=== PATIENT | female | born 1955 | race African-American/Black ===

== ENCOUNTER 2016-05-01 05:04 | Day surgery (SDC) | payer MEDICARE ==
[~2016-05-01 05:04] MED LIST: ASAB PO; DIL2TAB PO; DSS PO; FERROUS SULF325 M1 PO; FLEX PO; FLONASE NAS; K500 PO; KADIANSR30 PO; KLOR-CON M1010 MEQ PO; L40 PO; LORTAB 5 PO; LYRICA100 MG PO; LYRICA75 PO; MSCONTIN PO; NORCO1 TA1 PO; NORCO1 TA2 PO; NORCO1 TAB PO; PAX20 PO; PR12.5 PO; PR25 PO; PRILO PO; PROAIR HFA INH; SEPTRA DS1 TAB PO; TOPROL XL200 MG PO; TOPXL100 PO; ULTRAM50 PO
[2016-06-24] MEDS ORDERED: MOBIC15 MG PO (12:54)
[2016-11-21] MEDS ORDERED: LYRICA100 MG PO (08:30)
== END 2016-05-01 09:45 | disposition home or self-care (01) ==
LOC: SDC 05:04
PROVIDERS: Orthopaedic Surgery
PROC: 3E0R33Z Introduction of Anti-inflammatory into Spinal Canal, Percutaneous Approach (ICD-10-PCS; principal; 2016-05-01 07:15)
DX: M54.16 Radiculopathy, lumbar region (principal); G43.909 Migraine, unspecified, not intractable, without status migrainosus; M19.90 Unspecified osteoarthritis, unspecified site; Z88.0 Allergy status to penicillin; Z91.040 Latex allergy status; Z88.8 Allergy status to other drugs, medicaments and biological substances; Z90.49 Acquired absence of other specified parts of digestive tract; I10 Essential (primary) hypertension; Z90.710 Acquired absence of both cervix and uterus; Z98.890 Other specified postprocedural states
CPT/HCPCS: J1040; J2250; J2405; J3010; Q9967

== ENCOUNTER 2016-05-14 05:06 | Day surgery (SDC) | payer MEDICARE ==
[2016-06-24] MEDS ORDERED: MOBIC15 MG PO (12:54)
[2016-11-21] MEDS ORDERED: LYRICA100 MG PO (08:30)
== END 2016-05-14 13:27 | disposition home or self-care (01) ==
LOC: SDC 05:06
PROVIDERS: Orthopaedic Surgery
PROC: 3E0S3BZ Introduction of Anesthetic Agent into Epidural Space, Percutaneous Approach (ICD-10-PCS; 2016-05-14)
PROC: 3E0S33Z Introduction of Anti-inflammatory into Epidural Space, Percutaneous Approach (ICD-10-PCS; principal; 2016-05-14 07:45)
DX: M54.16 Radiculopathy, lumbar region (principal); M54.9 Dorsalgia, unspecified; I10 Essential (primary) hypertension; J40 Bronchitis, not specified as acute or chronic; M19.90 Unspecified osteoarthritis, unspecified site; Z79.51 Long term (current) use of inhaled steroids; Z79.899 Other long term (current) drug therapy; Z88.0 Allergy status to penicillin; Z88.8 Allergy status to other drugs, medicaments and biological substances; Z91.040 Latex allergy status; Z90.89 Acquired absence of other organs; Z96.651 Presence of right artificial knee joint; Z90.49 Acquired absence of other specified parts of digestive tract; Z90.710 Acquired absence of both cervix and uterus; Z98.890 Other specified postprocedural states
CPT/HCPCS: J1040; J2250; J2405; J3010; Q9967

== ENCOUNTER 2016-06-18 08:39 | Emergency (ER) | payer MEDICARE ==
[2016-06-24] MEDS ORDERED: MOBIC15 MG PO (12:54)
[2016-11-21] MEDS ORDERED: LYRICA100 MG PO (08:30)
== END 2016-06-18 10:00 | disposition home or self-care (01) ==
LOC: ER 08:39
DX: M54.5 Low back pain (principal); I10 Essential (primary) hypertension; Z88.0 Allergy status to penicillin; Z88.8 Allergy status to other drugs, medicaments and biological substances; Z91.040 Latex allergy status; Z79.899 Other long term (current) drug therapy
CPT/HCPCS: 96372; 99283; J2405

== ENCOUNTER 2016-07-04 07:12 | Inpatient (IN) | payer MEDICARE ==
[2016-06-27 09:55] LABS: HEMATOCRIT 38.1 % (36.0-48.0); HEMOGLOBIN 12.5 g/dL (12.0-16.0)
[2016-06-27 10:07] LABS: BUN (BLOOD UREA NITROGEN) 16 MG/DL (6-23); CALCIUM, SERUM 8.9 MG/DL (8.5-10.4); CHLORIDE, SERUM 108 MMOL/L (96-112); CO2 (CARBON DIOXIDE) 30 MMOL/L (24-34); GFR AFRICAN AMERICAN 62 ML/MIN (>=60); GFR NON AFRICAN AMERICAN 53 ML/MIN (>=60); GLUCOSE, SERUM 99 MG/DL (60-99); SODIUM, SERUM 142 MMOL/L (135-148)
--- NOTE | ~2016-07-04 | OP ---
Record Of Operation [facility] [address] [place]. [address] NAME: SAQIB ENCISO : 51 STATUS : ADM IN PAT#: [id number] AGE: 61 ADM/REG DATE : 07/04/16 MR#: [id number] REPORT SERV DATE: 07/06/16 DICTATED BY: BARBARA AGUILAR II DATE: 07/06/16 REPORT STATUS : Draft TRANSCRIBED BY: MODShankar DATE: 07/06/16 DATE OF PROCEDURE: 07/04/2016 PREOPERATIVE DIAGNOSES: 1. 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 2. 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 POSTOPERATIVE DIAGNOSES: 1. 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 2. 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 PROCEDURE: 1. L4-5 hardware removal. 2. Lumbar laminectomy and facetectomy at L2-3 and L3-4. 3. Interbody arthrodesis at L2-3 at L3-4. 4. Application of prosthetic devices at L2-3 and L3-4. 5. Posterolateral arthrodesis at L2-3 and L3-4. 6. Posterior segmental instrumentation at L2-3 and L3-4. 7. Use of local autograft, allograft substitute, and bone morphogenetic protein. 8. Use of the microscope and stereotactic spinal imaging. FLUIDS: 1800 mL LR. ESTIMATED BLOOD LOSS: 150 mL. DRAINS: One drain. COMPLICATIONS: None. ANTIBIOTIC: Preoperatively. PREOPERATIVE HISTORY: This is a very friendly 61-year-old female, who did well following a fusion many years ago. 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 We discussed the pros and cons of surgery as well as the rates of success and failures, and she wished to proceed. DESCRIPTION OF PROCEDURE: After informed consent was obtained, the patient was brought to the operating room at her request and general anesthesia was achieved. She was placed in the prone position and the back was prepped and draped in a sterile fashion. The stereotactic spinal pin was placed into the right iliac crest and the intraoperative CT scan completed. Please note that stereotactic guidance was then used throughout the case. Next, the minimally invasive incision was performed on the left at L2-3, L3-4, and L4-5. The hardware was now removed at L4-5. This was a pedicle screw construct. At this point, the transverse processes were dissected upon at L2-3 and L3-4. The facet Record Of Operation [facility] [address] [place]. [address] NAME: SAQIB ENCISO : 51 STATUS : ADM IN PAT#: [id number] AGE: 61 ADM/REG DATE : 07/04/16 MR#: [id number] REPORT SERV DATE: 07/06/16 DICTATED BY: BARBARA AGUILAR II DATE: 07/06/16 REPORT STATUS : Draft TRANSCRIBED BY: TREVER DATE: 07/06/16 capsules were removed and the facetectomy now initiated at L3-4. The severe spinal stenosis was now alleviated through the unilateral approach. The spinal laminar junction was taken down. The central canal was now well decompressed. The dura was well decompressed and the ligamentum flavum removed. At this point, the L3 and L4 nerve roots were now found to be acceptably decompressed following facetectomies. Next, the interbody arthrodesis was initiated at L3-4. The diskectomy was now completed with the pituitary rongeurs, Kerrison rongeurs, and the curettes. The valentina were also used. Irrigation was performed followed by placement of the prosthetic device at L3-4. This was placed into the anterior column alongside allograft substitute and local autograft. Next, the similar procedure was performed at L2-3. We then performed a complete facetectomy and a [id number] decompression was achieved. The dura was then well decompressed. The L2 and L3 nerve roots were now found to be well decompressed. Next, the interbody arthrodesis was initiated with the diskectomy at L2-3. The valentina and the curettes and the pituitary rongeurs were used extensively. The punctate bleeding bone was identified on both endplates. The prosthetic device was then well placed at L2-3 followed by use of allograft substitute and local autograft placed along side the prosthetic device. Next, the instrumentation was applied into L2, L3, and L4. On the right, we placed percutaneous screws. A repeat CT scan confirmed acceptable placement of the implants. The rods were then final tightened. Next, the decortication was performed on the left. The transverse processes were decorticated at L2, L3, and L4, and local autograft and allograft substitute placed along the decorticated surfaces. The deep drain was placed followed by a standard closure, and the patient was then extubated and transferred to PACU in stable condition. MARLYS/TREVER Barbara Aguilar II, M.D. / [id number] CC: Salina Coreas II, WINNIFRED D
[~2016-07-04 07:12] MED LIST changes: +MOBIC15 MG PO
[2016-07-06] MEDS ORDERED: OXYCOD PO (08:34)
[2016-07-06] MEDS ORDERED: V2 PO (08:34)
[2016-11-21] MEDS ORDERED: LYRICA100 MG PO (08:30)
== END 2016-07-06 11:27 | disposition home or self-care (01) | DRG 460 ==
LOC: SDC/OF 07:12 → PACU 15:17 → 3SO 17:20
PROVIDERS: Orthopaedic Surgery
PROC: 0SG10AJ Fusion of 2 or more Lumbar Vertebral Joints with Interbody Fusion Device, Posterior Approach, Anterior Column, Open Approach (ICD-10-PCS; principal; 2016-07-06)
PROC: 0SG1071 Fusion of 2 or more Lumbar Vertebral Joints with Autologous Tissue Substitute, Posterior Approach, Posterior Column, Open Approach (ICD-10-PCS; 2016-07-06)
PROC: 0ST20ZZ Resection of Lumbar Vertebral Disc, Open Approach (ICD-10-PCS; 2016-07-06)
PROC: 0SP004Z Removal of Internal Fixation Device from Lumbar Vertebral Joint, Open Approach (ICD-10-PCS; 2016-07-06)
PROC: 8E0WXBG Computer Assisted Procedure of Trunk Region, With Computerized Tomography (ICD-10-PCS; 2016-07-06)
DX: M51.16 Intervertebral disc disorders with radiculopathy, lumbar region (principal); I10 Essential (primary) hypertension; E66.9 Obesity, unspecified; M06.9 Rheumatoid arthritis, unspecified; G47.33 Obstructive sleep apnea (adult) (pediatric); G43.909 Migraine, unspecified, not intractable, without status migrainosus; Z68.37 Body mass index [BMI] 37.0-37.9, adult; Z79.1 Long term (current) use of non-steroidal anti-inflammatories (NSAID); Z79.891 Long term (current) use of opiate analgesic; Z79.899 Other long term (current) drug therapy; Z98.1 Arthrodesis status; Z91.040 Latex allergy status
CPT/HCPCS: 80048; 82962; 85014; 85018; 87641; 88300; 88304; 88311; 93005; 97161-GP; A9270-GY; C1713; C1769; J0690; J1170; J2250; J2370; J2405; J2710; J3010; J3370

== ENCOUNTER 2016-07-24 04:03 | Emergency (ER) | payer MEDICARE ==
[~2016-07-24 04:03] MED LIST changes: +OXYCOD PO; +V2 PO
[2016-07-24 04:24] LABS: BASOPHILS 0.5 %; BASOPHILS ABSOLUTE 0.02 10/3/uL (0.0-0.16); EOSINOPHILS 0.9 %; EOSINOPHILS ABSOLUTE 0.04 10/3/uL (0.0-0.53); HEMATOCRIT 34.4 % (36.0-48.0); HEMOGLOBIN 11.2 g/dL (12.0-16.0); IMMATURE GRANULOCYTES 0.2 %; IMMATURE GRANULOCYTES ABSOLUTE 0.01 10/3/uL (0.0-0.11); LYMPHOCYTES 42.6 %; LYMPHOCYTES ABSOLUTE 1.81 10/3/uL (0.67-4.30); MEAN CORPUS HGB CONC 32.6 g/dL (32.0-36.0); MEAN CORPUSCULAR HEMOGLOB 30.2 pg (26.0-34.0); MEAN CORPUSCULAR VOLUME 92.7 fL (80-100); MEAN PLATELET VOLUME 8.1 fL (9.2-13.0); MONOCYTES 6.4 %; MONOCYTES ABSOLUTE 0.27 10/3/uL (0.21-1.20); NEUTROPHILS 49.4 %; PLATELET COUNT 403 10/3/uL (150-400); RBC DISTRIBUTION WIDTH 14.4 % (12.0-16.0); RED CELL COUNT 3.71 10/6/uL (4.0-5.6); WHITE BLOOD CELLS 4.3 10/3/uL (4.5-10.5)
[2016-07-24 04:27] LABS: ER CBC TAT 0 Hrs 07 MinsNP; MANUAL DIFF NO %
[2016-07-24 04:35] LABS: CALCIUM, SERUM 9.4 MG/DL (8.5-10.4); CHLORIDE, SERUM 106 MMOL/L (96-112); CO2 (CARBON DIOXIDE) 28 MMOL/L (24-34); CREATININE 1.03 MG/DL (0.55-1.02); GFR AFRICAN AMERICAN 67 ML/MIN (>=60); GFR NON AFRICAN AMERICAN 58 ML/MIN (>=60); GLUCOSE, SERUM 98 MG/DL (60-99); SODIUM, SERUM 141 MMOL/L (135-148)
[2016-07-24 04:42] LABS: BUN (BLOOD UREA NITROGEN) 10 MG/DL (6-23)
[2016-11-21] MEDS ORDERED: LYRICA100 MG PO (08:30)
== END 2016-07-24 05:51 | disposition home or self-care (01) ==
LOC: ER 04:03
PROVIDERS: Nurse Practitioner Acute Care
DX: T81.4XXA Infection following a procedure, initial encounter (principal); I10 Essential (primary) hypertension; K21.9 Gastro-esophageal reflux disease without esophagitis; Z90.710 Acquired absence of both cervix and uterus; Z91.040 Latex allergy status; Z88.0 Allergy status to penicillin; Z88.6 Allergy status to analgesic agent; Z79.899 Other long term (current) drug therapy
CPT/HCPCS: 72131; 80048; 83605; 85025; 87040; 87070; 87077; 87186; 87205; 96374; 96375; 99284; J1170; J2405; J3370

== ENCOUNTER 2016-11-03 22:15 | Emergency (ER) | payer MEDICARE | END 2016-11-04 00:20 | disposition home or self-care (01) | LOC: ER 22:15 | DX: J40 Bronchitis, not specified as acute or chronic (principal); J18.9 Pneumonia, unspecified organism; I10 Essential (primary) hypertension; G43.909 Migraine, unspecified, not intractable, without status migrainosus; Z88.0 Allergy status to penicillin; Z88.6 Allergy status to analgesic agent; Z91.040 Latex allergy status; Z79.899 Other long term (current) drug therapy | CPT/HCPCS: 71020; 93005; 99284; A9270-GY ==

== ENCOUNTER 2016-11-22 04:48 | Day surgery (SDC) | payer MEDICARE ==
[~2016-11-22] VITALS: Ht 170.2 cm; Wt 93.0 kg
== END 2016-11-22 08:26 | disposition home or self-care (01) ==
LOC: SDC 04:48
PROVIDERS: Orthopaedic Surgery
PROC: 3E0R3BZ Introduction of Anesthetic Agent into Spinal Canal, Percutaneous Approach (ICD-10-PCS; 2016-11-22)
PROC: B01BZZZ Fluoroscopy of Spinal Cord (ICD-10-PCS; 2016-11-22)
PROC: 3E0R33Z Introduction of Anti-inflammatory into Spinal Canal, Percutaneous Approach (ICD-10-PCS; principal; 2016-11-22 09:00)
DX: M54.16 Radiculopathy, lumbar region (principal); Z79.899 Other long term (current) drug therapy; Z88.0 Allergy status to penicillin; Z91.040 Latex allergy status; Z88.8 Allergy status to other drugs, medicaments and biological substances; Z90.710 Acquired absence of both cervix and uterus; Z90.49 Acquired absence of other specified parts of digestive tract; Z98.890 Other specified postprocedural states
CPT/HCPCS: J1040; J2250; J3010; Q9967